=== PATIENT | female | born 1950 | race Caucasian/White ===

== ENCOUNTER 2017-01-15 22:13 | Emergency (ER) | payer OTHER ==
[2017-01-15 22:40] LABS: BILIRUBIN NEGATIVE (NEGATIVE); BLOOD TRACE-INTACT Ery/uL (NEGATIVE); CLARITY CLEAR (CLEAR); COLOR YELLOW (YELLOW); GLUCOSE (U) NORMAL (NORMAL); KETONE (U) NEGATIVE (NEGATIVE); LEUKOCYTES NEGATIVE Leu/uL (NEGATIVE); NITRITE NEGATIVE (NEGATIVE); PROTEIN NEGATIVE (NEGATIVE); SPECIFIC GRAVITY <=1.005 (1.001-1.030); UROBILINOGEN 0.2 mg/dL (0.2-1.0)
[2017-01-15 22:44] LABS: BACTERIA TRACE; SQUAMOUS EPITHELIAL CELLS RARE
[2017-01-15 23:57] LABS: BASOPHIL 0.3 % (0-2); EOSINOPHIL 4.5 % (0-7); HCT 37.4 % (37.0-47.0); HGB 12.6 g/dl (12.5-16.0); LYMPHOCYTE 12.3 % (15-48); MCH 30.4 pg (25.0-31.0); MCHC 33.7 g/dL (32.0-36.0); MCV 90.3 fL (78.0-100.0); MONOCYTE 5.5 % (0-12); MPV 10.2 fL (6.0-9.5); NEUTROPHIL 77.4 % (41-80); PLT 289 K/uL (150-400); RBC 4.14 M/uL (4.20-5.40); RDW 12.7 % (11.5-14.0); WBC 13.5 K/uL (4.0-10.5)
[2017-01-16 00:17] LABS: TROPONIN T < 0.010 ng/mL
[2017-01-16 00:18] LABS: PRO-BNP 355 pg/mL (0-125)
[2017-01-16 00:19] LABS: BILIRUBIN - TOTAL 0.4 mg/dL (0.1-1.0); CREATININE 0.8 mg/dL (0.5-1.0); GLOBULIN (CALCULATION) 2.8 g/dL (2.2-4.2); TOTAL PROTEIN 6.8 g/dL (6.4-8.3)
== END 2017-01-16 05:20 | disposition home or self-care (01) ==
LOC: FER 22:13
PROVIDERS: Internal Medicine; Nurse Practitioner
DX: J45.909 Unspecified asthma, uncomplicated (principal); K21.9 Gastro-esophageal reflux disease without esophagitis; Z87.891 Personal history of nicotine dependence; Z87.09 Personal history of other diseases of the respiratory system; Z88.5 Allergy status to narcotic agent; Z91.041 Radiographic dye allergy status; Z79.51 Long term (current) use of inhaled steroids; Z79.899 Other long term (current) drug therapy
CPT/HCPCS: 36415; 71020; 71250; 80053; 81001; 83880; 84484; 85025; 85379; 87804; 87899; 93005; 94640; 94760; J2930

== ENCOUNTER 2022-08-04 11:55 | Day surgery (SDCO) | payer OTHER ==
[~2022-08-04] VITALS: Ht 160 cm; Wt 83.2 kg
[~2022-08-04 11:55] MED LIST: HCTZ25 MG PO; SYMBICORT 80-10.2 GM INH
[2022-08-04 13:25] LABS: BASOPHIL 0.5 % (0-2); EOSINOPHIL 1.1 % (0-7); HGB 14.4 g/dl (12.5-16.0); LYMPHOCYTE 18.2 % (15-48); MCH 32.6 pg (25.0-31.0); MCHC 33.5 g/dL (32.0-36.0); MCV 97.3 fL (78.0-100.0); MPV 10.3 fL (6.0-9.5); NEUTROPHIL 73.1 % (41-80); NRBC 0; PLT 294 K/uL (150-400); RBC 4.42 M/uL (4.20-5.40); RDW 12.7 % (11.5-14.0); WBC 13.1 K/uL (4.0-10.5)
[2022-08-04 13:32] LABS: ALBUMIN 3.9 g/dL (3.4-5.0); BILIRUBIN - TOTAL 0.5 mg/dL (0.2-1.0); BUN/CREAT RATIO (CALC) 21.2 RATIO; CREATININE 0.8 mg/dL (0.51-0.95); POTASSIUM 3.7 mmol/L (3.5-5.1); TOTAL PROTEIN 7.9 g/dL (6.4-8.2)
[2022-08-04 15:53] LABS: LACTIC ACID 0.9 mmol/L (0.4-1.9)
[2022-08-04] MEDS ORDERED: ELIQUIS5 MG PO (17:37)
[2022-08-04] MEDS ORDERED: TOPROL XL 25MG25 MG PO (17:38)
[2022-08-05 05:53] LABS: BASOPHIL 0.4 % (0-2); EOSINOPHIL 1.3 % (0-7); HCT 42.5 % (37.0-47.0); LYMPHOCYTE 17.3 % (15-48); MCH 31.7 pg (25.0-31.0); MCHC 32.9 g/dL (32.0-36.0); MCV 96.2 fL (78.0-100.0); MPV 10.1 fL (6.0-9.5); NEUTROPHIL 73.1 % (41-80); NRBC 0; PLT 278 K/uL (150-400); RBC 4.42 M/uL (4.20-5.40); RDW 12.6 % (11.5-14.0); WBC 13.5 K/uL (4.0-10.5)
[2022-08-05 06:21] LABS: BUN/CREAT RATIO (CALC) 27.9 RATIO; CREATININE 0.68 mg/dL (0.51-0.95)
[2022-08-05] MEDS ORDERED: TOPROL XL 50 MG50 MG PO (11:46)
== END 2022-08-05 12:30 | disposition home or self-care (01) ==
LOC: FER 11:55 → FTCU 15:35
PROVIDERS: Physician Assistant; ADMIT Internal Medicine
DX: I48.91 Unspecified atrial fibrillation (principal); I10 Essential (primary) hypertension; J10.1 Influenza due to other identified influenza virus with other respiratory manifestations; R07.9 Chest pain, unspecified; M19.90 Unspecified osteoarthritis, unspecified site; Z88.5 Allergy status to narcotic agent; Z79.01 Long term (current) use of anticoagulants
CPT/HCPCS: 36415; 71045; 71250; 80048; 80053; 82962; 83605; 83735; 83880; 84145; 84484; 85025; 93005; G0378